=== PATIENT | male | born 1970 | race Caucasian/White ===

== ENCOUNTER 2017-07-05 09:21 | Emergency (ER) | payer BC ==
[~2017-07-05] VITALS: Ht 175.3 cm; Wt 86.2 kg
[~2017-07-05 09:21] MED LIST: KETO10TA2 PO
[2017-07-05] MEDS ORDERED: PROPRANOLOL HCL80 M1 (09:55)
== END 2017-07-05 12:32 | disposition home or self-care (01) ==
LOC: ER 09:21
DX: R51 Headache (principal); R61 Generalized hyperhidrosis; R53.83 Other fatigue